=== PATIENT | female | born 1985 | race Caucasian/White ===

== ENCOUNTER → 2017-11-16 | Outpatient (CLI) | payer OTHER | LOC: M LRY 09:38 | DX: M25.532 Pain in left wrist (principal) ==

== ENCOUNTER 2017-12-09 10:58 | Day surgery (SDC) | payer OTHER ==
[2017-12-09] MEDS: NS 1,000 ML IV (11:00)
[2017-12-09] MEDS ORDERED: PROPOFOL 200 MG/20 ML VIAL As Ordered ×2 (12:26→12:40)
== END 2017-12-09 13:32 | disposition home or self-care (01) ==
LOC: M OPP 10:58
DX: K59.00 Constipation, unspecified (principal); K64.0 First degree hemorrhoids; F41.9 Anxiety disorder, unspecified; F32.9 Major depressive disorder, single episode, unspecified; G43.909 Migraine, unspecified, not intractable, without status migrainosus; R06.83 Snoring; Z88.8 Allergy status to other drugs, medicaments and biological substances; Z91.040 Latex allergy status; Z79.899 Other long term (current) drug therapy
CPT/HCPCS: 45378

== ENCOUNTER 2019-02-16 15:00 | Emergency (ER) | payer OTHER ==
[~2019-02-16] VITALS: Ht 170.2 cm; Wt 79.5 kg
[~2019-02-16 15:00] MED LIST: EFFE75CA2 PO; LINZ290C PO; SERO1TAB3 PO; VITA500046 PO
[2019-02-16] MEDS ORDERED: CYCLOBENZAPRINE 10 MG TAB PO ONE (15:45)
[2019-02-16] MEDS ORDERED: predniSONE 20 MG TAB PO ONE (15:45)
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
--- NOTE | 2019-02-16 16:51 | REP ---
Right shoulder three view : There is no fracture or dislocation. Mineralization and joint spaces are normal. There are no calcifications or foreign bodies. Impression: Negative right shoulder . Electronically Signed by Justen Waterman MD 02/16/2019 04:43 P
[2019-02-16] MEDS ORDERED: CYCL10TA PO (16:57)
[2019-02-16] MEDS ORDERED: PRED20TA PO (16:57)
[2019-02-16 17:14] VITALS: BP 114/68
== END 2019-02-16 17:19 | disposition home or self-care (01) ==
LOC: EDBD 15:00 → M ED 15:00
DX: S29.012A Strain of muscle and tendon of back wall of thorax, initial encounter (principal); S39.012A Strain of muscle, fascia and tendon of lower back, initial encounter; S13.4XXA Sprain of ligaments of cervical spine, initial encounter; V49.59XA Passenger injured in collision with other motor vehicles in traffic accident, initial encounter; Y92.89 Other specified places as the place of occurrence of the external cause; F41.9 Anxiety disorder, unspecified; Z79.899 Other long term (current) drug therapy; Z88.8 Allergy status to other drugs, medicaments and biological substances; Z91.040 Latex allergy status